=== PATIENT | male | born 1980 | race Caucasian/White ===

== ENCOUNTER 2018-03-09 15:39 | Emergency (ER) | payer OTHER ==
[~2018-03-09] VITALS: Ht 172.7 cm; Wt 77.1 kg
[2018-03-09] MEDS ORDERED: KEFLEX500 M1 PO (17:00)
[2018-03-09] MEDS ORDERED: IBUPROFEN 600600 M1 PO (17:00)
[2018-03-09 17:56] VITALS: BP 114/74
== END 2018-03-09 17:58 | disposition home or self-care (01) ==
LOC: M.ERS 15:39
DX: S51.812A Laceration without foreign body of left forearm, initial encounter (principal); W26.8XXA Contact with other sharp object(s), not elsewhere classified, initial encounter; Y93.89 Activity, other specified; Y92.89 Other specified places as the place of occurrence of the external cause; Y99.8 Other external cause status; F17.200 Nicotine dependence, unspecified, uncomplicated